=== PATIENT | female | born 1960 | race Caucasian/White ===

== ENCOUNTER 2017-04-12 12:53 | Emergency (ER) | payer OTHER ==
[2017-04-12 13:04] VITALS: BP 138/91
[2017-04-12] MEDS ORDERED: Ketorolac 30 MG/ML SDV IM ONE (13:27)
[2017-04-12] MEDS ORDERED: Dexamethasone 4 MG/ML SDV IM ONE (13:27)
--- NOTE | 2017-04-12 13:27 | EDM.PDOC ---
ED HPI GENERAL MEDICAL PROBLEM - General Chief Complaint: General Stated Complaint: NOT FEELING GOOD, FOOT PAIN AND SINUSES Time Seen by Provider: 04/12/17 13:23 Source of Information: Reports: Patient History Limitations: Reports: No Limitations - History of Present Illness INITIAL COMMENTS - FREE TEXT/NARRATIVE: 57 yo female presents with pain to right medial foot. States that she twisted the foot 2 weeks ago but pain not improving. States that she has a hx of plantar fasciitis. Also c/o sinus congestion and pain x 1 week. States that she could not get into clinic so she came to Er because she is on her feet all day at work. No other complaints. Onset Date: 03/29/17 Duration: Constant Location: Reports: Lower Extremity, Right Quality: Reports: Sharp Severity: Moderate Improves with: Reports: None Worsens with: Reports: Movement Associated Symptoms: Reports: No Other Symptoms Right Feet Pain Score (Numeric/FACES): 5 - Related Data Allergies Allergy/AdvReac Type Severity Reaction Status Date / Time acetaminophen [From Percocet] Allergy Shortness Verified 04/12/17 13:07 of Breath oxycodone HCl [From Percocet] Allergy Shortness Verified 04/12/17 13:07 of Breath Penicillins Allergy Swollen Verified 04/12/17 13:07 Tongue Sulfa (Sulfonamide Allergy Hives Verified 04/12/17 13:07 Antibiotics) Home Meds: Home Meds Calcium Carbonate [Calcium] 500 mg PO DAILY 11/30/15 [History] Cinnamon Bark [Cinnamon] 500 mg PO DAILY 11/30/15 [History] Famotidine [Pepcid AC] 10 mg PO DAILY 11/30/15 [History] Fexofenadine [Malaika] 180 mg PO DAILY 11/30/15 [History] Milk Thistle 175 mg PO DAILY 11/30/15 [History] Nortriptyline 25 mg PO BEDTIME 11/30/15 [History] Biotin 1 tab PO DAILY 04/12/17 [History] Vit A & D3 In Cod Liver Oil [Cod Liver Oil Softgel] 1 tab PO DAILY 04/12/17 [ History] Vit B Cmplx 3/Fa/Vit C/Biotin [Sophy-Khoa Rx Tablet] 1 each PO DAILY 04/12/17 [ History] Past Medical History HEENT History: Reports: Impaired Vision, Otitis Media, Other (See Below) Other HEENT History: skin graft over right ear when 20 Cardiovascular History: Reports: None Respiratory History: Reports: None Gastrointestinal History: Reports: GERD 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 Musculoskeletal History: Reports: None Neurological History: Reports: None Psychiatric History: Reports: Anxiety Endocrine/Metabolic History: Reports: Obesity/BMI 30+ Hematologic History: Reports: None Immunologic History: Reports: None Oncologic (Cancer) History: Reports: None Dermatologic History: Reports: Eczema - Infectious Disease History Infectious Disease History: Reports: None - Past Surgical History Head Surgeries/Procedures: Reports: None Female Surgical History: Reports: Other (See Below) Other Female Surgeries/Procedures: bladder lift in 2008 Social & Family History - Family History Family Medical History: Noncontributory - Tobacco Use Smoking Status *Q: Current Every Day Smoker Years of Tobacco use: 10 Packs/Tins Daily: 0.5 Second Hand Smoke Exposure: Yes - Caffeine Use Caffeine Use: Reports: Soda, Tea - Recreational Drug Use Recreational Drug Use: No - Living Situation & Occupation Living situation: Reports: , with Family Occupation: Employed ED ROS GENERAL - Review of Systems Review Of Systems: See Below HEENT: Reports: Sinus Problem Musculoskeletal: Reports: Foot Pain ED EXAM, GENERAL - Physical Exam Exam: See Below Exam Limited By: No Limitations General Appearance: Alert, WD/WN, No Apparent Distress Eye Exam: Bilateral Eye: PERRL Ears: Normal External Exam, Normal Canal, Hearing Grossly Normal Ear Exam: Bilateral Ear: TM Dull Nose: Normal Inspection, Normal Mucosa, No Blood Throat/Mouth: Normal Inspection, Normal Lips, Normal Teeth, Normal Gums, Normal Oropharynx, Normal Voice, No Airway Compromise Head: Sinus Tenderness (frontal and maxillary bilaterally) Neck: Normal Inspection, Supple, Non-Tender, Full Range of Motion Respiratory/Chest: No Respiratory Distress, Lungs Clear, Normal Breath Sounds, No Accessory Muscle Use, Chest Non-Tender Cardiovascular: Normal Peripheral Pulses, Regular Rate, Rhythm, No Edema, No Gallop, No JVD, No Murmur, No Rub Peripheral Pulses: 4+: Dorsalis Pedis (L), Dorsalis Pedis (R) Extremities: Normal Inspection, Normal Range of Motion, Non-Tender, Normal Capillary Refill, No Pedal Edema Skin Exam: Warm, Dry, Intact, Normal Color, No Rash Course - Vital Signs Last Recorded V/S: Last Vital Signs Temp 97.6 F 04/12/17 13:03 Pulse 84 04/12/17 13:03 Resp 20 04/12/17 13:03 BP 138/91 H 04/12/17 13:03 Pulse Ox 94 L 04/12/17 13:03 - Orders/Labs/Meds Labs: Laboratory Tests 04/12/17 Range/Units 13:02 POC Glucose 88 (70-105) mg/dl Meds: Medications Discontinued Medications Generic Name Dose Route Start Last Admin Trade Name Saurav PRN Reason Stop Dose Admin Dexamethasone 10 mg 04/12/17 13:27 04/12/17 13:38 Dexamethasone IM 04/12/17 13:28 10 mg ONETIME ONE Administration Ketorolac Tromethamine 30 mg 04/12/17 13:27 04/12/17 13:39 Toradol IM 04/12/17 13:28 30 mg ONETIME ONE Administration - Radiology Interpretation Free Text/Narrative:: NO acute fracture or dislocation noted. - Re-Assessments/Exams Free Text/Narrative Re-Assessment/Exam: 04/12/17 14:04 Pt feels better. will dc home with z-pack and medrol dose pack. Pt request off work until wednesday however informed patient that she can have 2 days off. Departure - Departure Time of Disposition: 14:05 Disposition: Home, Self-Care 01 Condition: Good Clinical Impression: Plantar fasciitis of right foot Sinusitis Qualifiers: Sinusitis location: unspecified location Chronicity: acute Recurrence: not specified as recurrent Qualified Code(s): J01.90 - Acute sinusitis, unspecified - Discharge Information Instructions: Plantar Fasciitis, Sinusitis, Adult, [id number] Forms: ED Department Discharge Additional Instructions: Take medication as prescribed. Follow up with your PCP as needed
--- NOTE | 2017-04-12 13:40 | CR ---
Clinical history: 57-year-old female with right foot pain (2 weeks). Interpretation: AP lateral views right foot confirms the presence of large heel spurs at the inserti on plantar aponeurosis and Achilles tendon on the os calcis. Atavistic first cuneiform and chronic mild arthritic changes first metatarsophalangeal joint. No sign of foreign body, inflammatory periostitis, right foot fracture or dislocation.
== END 2017-04-12 14:11 | disposition home or self-care (01) ==
LOC: DL.ED 12:53
DX: M72.2 Plantar fascial fibromatosis (principal); J01.90 Acute sinusitis, unspecified; F41.9 Anxiety disorder, unspecified; H54.7 Unspecified visual loss; K21.9 Gastro-esophageal reflux disease without esophagitis; E11.9 Type 2 diabetes mellitus without complications; F17.210 Nicotine dependence, cigarettes, uncomplicated; Z88.8 Allergy status to other drugs, medicaments and biological substances; Z88.0 Allergy status to penicillin; Z88.2 Allergy status to sulfonamides
CPT/HCPCS: 73620; 82962; 96372; 99283; J1100; J1885

== ENCOUNTER 2017-12-06 09:21 | Emergency (ER) | payer OTHER ==
[2017-12-06 09:36] VITALS: BP 156/97
--- NOTE | 2017-12-06 10:10 | EDM.PDOC ---
ED HPI GENERAL MEDICAL PROBLEM - General Chief Complaint: Abdominal Pain Stated Complaint: ABD PAIN, BAD ACID REFLUX X 3 DAYS Time Seen by Provider: 12/06/17 09:55 Source of Information: Reports: Patient History Limitations: Reports: No Limitations - History of Present Illness INITIAL COMMENTS - FREE TEXT/NARRATIVE: This 57 yo female patient reports to the ED with right upper quadrant abdominal pain that started Wednesday (12/03/17). The patient reports her pain has been coming and going since that time. The patient reports that she was seen in the Clinic last Wednesday (12/01/17) for an ear infection (started on Augmentin and Prednisone). The patient called back to the Clinic on (12/02/17) due to a cold sore and discharge (started on Acyclovir and Nystatin). The patient reports she has taken her Acyclovir, Nystatin, Pepcid AC, Benadryl and some over the counter medications (Tums) with no symptom relief. The patient also reports she tried Kalli Jeannie, stale Coke and lemon juice with no improvement of her acid reflux. Onset Date: 12/03/17 Duration: Intermittent Location: Reports: Abdomen (RUQ) Quality: Reports: Ache, Dull Severity: Moderate Improves with: Reports: None Worsens with: Reports: None Context: Reports: Other Associated Symptoms: Reports: No Other Symptoms Right Upper Abdomen Pain Score (Numeric/FACES): 6 - Related Data Allergies Allergy/AdvReac Type Severity Reaction Status Date / Time oxycodone HCl [From Percocet] Allergy Shortness Verified 12/06/17 09:36 of Breath Penicillins Allergy Swollen Verified 12/06/17 09:36 Tongue Sulfa (Sulfonamide Allergy Hives Verified 12/06/17 09:36 Antibiotics) Home Meds: Home Meds Calcium Carbonate [Calcium] 500 mg PO DAILY 11/30/15 [History] Cinnamon Bark [Cinnamon] 500 mg PO DAILY 11/30/15 [History] Famotidine [Pepcid AC] 10 mg PO DAILY 11/30/15 [History] Fexofenadine [Malaika] 180 mg PO DAILY 11/30/15 [History] Milk Thistle 175 mg PO DAILY PRN 11/30/15 [History] Nortriptyline 25 mg PO BEDTIME 03/12/16 [History] Vit A & D3 In Cod Liver Oil [Cod Liver Oil Softgel] 1 tab PO DAILY 04/12/17 [ History] Vit B Cmplx 3/Fa/Vit C/Biotin [Sophy-Khoa Rx Tablet] 1 each PO DAILY 04/12/17 [ History] Past Medical History HEENT History: Reports: Impaired Vision, Otitis Media, Other (See Below) Other HEENT History: skin graft over right ear when 20, wears glasses Cardiovascular History: Reports: None Respiratory History: Reports: None Gastrointestinal History: Reports: GERD Genitourinary History: Reports: None 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 Musculoskeletal History: Reports: None Neurological History: Reports: None Psychiatric History: Reports: Anxiety Endocrine/Metabolic History: Reports: Obesity/BMI 30+ Hematologic History: Reports: None Immunologic History: Reports: None Oncologic (Cancer) History: Reports: None Dermatologic History: Reports: Eczema - Infectious Disease History Infectious Disease History: Reports: None - Past Surgical History Head Surgeries/Procedures: Reports: None Female Surgical History: Reports: Other (See Below) Other Female Surgeries/Procedures: bladder lift in 2008 Social & Family History - Family History Family Medical History: Noncontributory - Tobacco Use Smoking Status *Q: Current Every Day Smoker Years of Tobacco use: 10 Packs/Tins Daily: 0.5 Second Hand Smoke Exposure: No - Caffeine Use Caffeine Use: Reports: Soda, Tea - Recreational Drug Use Recreational Drug Use: No - Living Situation & Occupation Living situation: Reports: , with Family Occupation: Employed ED ROS GENERAL - Review of Systems Review Of Systems: ROS reveals no pertinent complaints other than HPI. ED EXAM, GI/ABD - Physical Exam Exam: See Below Exam Limited By: No Limitations General Appearance: Alert, WD/WN, Moderate Distress, Obese Eyes: Bilateral: Normal Appearance, EOMI Ears: Normal External Exam, Normal Canal, Hearing Grossly Normal Nose: Normal Inspection, Normal Mucosa, No Blood Throat/Mouth: Normal Inspection, Normal Lips, Normal Teeth, Normal Gums, Normal Oropharynx, Normal Voice, No Airway Compromise Head: Atraumatic, Normocephalic Neck: Normal Inspection, Supple, Non-Tender, Full Range of Motion Respiratory/Chest: No Respiratory Distress, Lungs Clear, Normal Breath Sounds, No Accessory Muscle Use, Chest Non-Tender Cardiovascular: Normal Peripheral Pulses, Regular Rate, Rhythm, No Edema, No Gallop, No JVD, No Murmur, No Rub GI/Abdominal Exam: Normal Bowel Sounds, No Organomegaly, No Distention, No Abnormal Bruit, No Mass, Pelvis Stable, Tender (RUQ and epigastric tenderness to palpation) (Female) Exam: Deferred Rectal (Female) Exam: Deferred Back Exam: Normal Inspection, Full Range of Motion, NT Extremities: Normal Inspection, Normal Range of Motion, Non-Tender, Normal Capillary Refill, No Pedal Edema Neurological: Alert, Oriented, CN II-XII Intact, Normal Cognition, Normal Gait, Normal Reflexes, No Motor/Sensory Deficits Psychiatric: Anxious Skin Exam: Warm, Dry, Intact, Normal Color, No Rash Lymphatic: No Adenopathy Course - Vital Signs Last Recorded V/S: Last Vital Signs Temp 37.1 C 12/06/17 09:28 Pulse 74 12/06/17 09:28 Resp 16 12/06/17 09:28 BP 156/97 H 12/06/17 09:28 Pulse Ox 96 12/06/17 09:28 - Orders/Labs/Meds Labs: Laboratory Tests 12/06/17 12/06/17 12/06/17 Range/Units 09:58 09:58 09:58 WBC 11.7 H (5.0-10.0) 10^3/uL RBC 4.66 (4.2-5.4) 10^6/uL Hgb 12.9 (12.0-16.0) g/dL Hct 38.7 (37.0-47.0) % MCV 83.0 (80-100) fL MCH 27.7 (27.0-34.0) pg MCHC 33.3 (33.0-35.0) g/dL Plt Count 324 (150-450) 10^3/uL Neut % (Auto) 63.7 (42.2-75.2) % Lymph % (Auto) 28.2 (20.5-50.1) % [place] % (Auto) 5.6 (2-8) % Eos % (Auto) 2.2 (1.0-3.0) % Baso % (Auto) 0.3 (0.0-1.0) % Sodium 138 (135-145) mmol/L Potassium 4.2 (3.6-5.0) mmol/L Chloride 104 (101-111) mmol/L Carbon Dioxide 25.0 (21.0-31.0) mmol/L Anion Gap 13.2 BUN 18 (7-18) mg/dL Creatinine 0.8 (0.6-1.3) mg/dL Est Cr Clr Drug Dosing 74.38 mL/min Estimated GFR (MDRD) > 60 BUN/Creatinine Ratio 22.50 Glucose 111 H (74-105) mg/dL Calcium 8.8 (8.4-10.2) mg/dl Total Bilirubin 0.5 (0.2-1.0) mg/dL AST 21 (10-42) IU/L ALT 30 (10-60) IU/L Alkaline Phosphatase 55 (42-121) IU/L Total Protein 7.2 (6.7-8.2) g/dl Albumin 3.9 (3.2-5.5) g/dl Globulin 3.3 Albumin/Globulin Ratio 1.18 Amylase 41 (28-100) U/L Lipase 17 L (22-51) U/L Urine Color (YELLOW) Urine Appearance (CLEAR) Urine pH (5.0-9.0) Ur Specific [place] (1.005-1.030) Urine Protein (NEGATIVE) Urine Glucose (UA) (NEGATIVE) Urine Ketones (NEGATIVE) Urine Occult Blood (NEGATIVE) Urine Nitrite (NEGATIVE) Urine Bilirubin (NEGATIVE) Urine Urobilinogen (0.2-1.0) mg/dL Ur Leukocyte Esterase (NEGATIVE) Urine RBC /HPF Urine WBC (0-5/HPF) /HPF Ur Epithelial Cells /HPF Urine Bacteria (0-FEW/HPF) /HPF Urine Mucus /LPF 12/06/17 Range/Units 10:06 WBC (5.0-10.0) 10^3/uL RBC (4.2-5.4) 10^6/uL Hgb (12.0-16.0) g/dL Hct (37.0-47.0) % MCV (80-100) fL MCH (27.0-34.0) pg MCHC (33.0-35.0) g/dL Plt Count (150-450) 10^3/uL Neut % (Auto) (42.2-75.2) % Lymph % (Auto) (20.5-50.1) % [place] % (Auto) (2-8) % Eos % (Auto) (1.0-3.0) % Baso % (Auto) (0.0-1.0) % Sodium (135-145) mmol/L Potassium (3.6-5.0) mmol/L Chloride (101-111) mmol/L Carbon Dioxide (21.0-31.0) mmol/L Anion Gap BUN (7-18) mg/dL Creatinine (0.6-1.3) mg/dL Est Cr Clr Drug Dosing mL/min Estimated GFR (MDRD) BUN/Creatinine Ratio Glucose (74-105) mg/dL Calcium (8.4-10.2) mg/dl Total Bilirubin (0.2-1.0) mg/dL AST (10-42) IU/L ALT (10-60) IU/L Alkaline Phosphatase (42-121) IU/L Total Protein (6.7-8.2) g/dl Albumin (3.2-5.5) g/dl Globulin Albumin/Globulin Ratio Amylase (28-100) U/L Lipase (22-51) U/L Urine Color Yellow (YELLOW) Urine Appearance Clear (CLEAR) Urine pH 5.5 (5.0-9.0) Ur Specific [place] 1.015 (1.005-1.030) Urine Protein Negative (NEGATIVE) Urine Glucose (UA) Negative (NEGATIVE) Urine Ketones Negative (NEGATIVE) Urine Occult Blood Negative (NEGATIVE) Urine Nitrite Negative (NEGATIVE) Urine Bilirubin Negative (NEGATIVE) Urine Urobilinogen 0.2 (0.2-1.0) mg/dL Ur Leukocyte Esterase Negative (NEGATIVE) Urine RBC 0-5 /HPF Urine WBC 0-5 (0-5/HPF) /HPF Ur Epithelial Cells Few /HPF Urine Bacteria Rare (0-FEW/HPF) /HPF Urine Mucus Rare /LPF Meds: Medications Discontinued Medications Generic Name Dose Route Start Last Admin Trade Name Freq PRN Reason Stop Dose Admin Al Hydroxide/Mg Hydroxide 30 ml 12/06/17 12:07 12/06/17 12:15 Gi Cocktail PO 12/06/17 12:08 30 ml ONETIME ONE Administration Omeprazole 20 mg 12/06/17 12:07 12/06/17 12:14 Omeprazole PO 12/06/17 12:08 20 mg ONETIME ONE Administration - Re-Assessments/Exams Free Text/Narrative Re-Assessment/Exam: 12/06/17 12:09 The patient was advised of the lab and CT results. The patient was given Omeprazole and a GI Cocktail. Departure - Departure Time of Disposition: 12:55 Disposition: Home, Self-Care 01 Condition: Fair Clinical Impression: GERD (gastroesophageal reflux disease) Qualifiers: Esophagitis presence: esophagitis presence not specified Qualified Code(s): K21.9 - Gastro-esophageal reflux disease without esophagitis - Discharge Information Instructions: Gastroesophageal Reflux Disease, Adult, [id number] Forms: ED Department Discharge Care Plan Goals: The patient was advised of the examination, lab and CT results during the visit. The patient was given an oral dose of Omeprazole and a GI Cocktail during the visit. The patient was discharged with a script for Omeprazole (20 mg ) #30 to take 1 by mouth daily 30 minutes prior to eating. If the patient has any additional symptoms or concerns, the patient should visit her primary care facility or return to the emergency department.
[2017-12-06 10:27] LABS: ANION GAP 13.2; CHLORIDE,CL 104 mmol/L (101-111); SODIUM,NA 138 mmol/L (135-145)
--- NOTE | 2017-12-06 11:58 | CT ---
Clinical history: 57-year-old 216 pounds female smoker with midepigastric pain (administered several antibiotics, steroids and antiviral medications in the past week) who has had previous hysterectomy. WBC 11,700. Scan technique: Volume acquisition of data from the abdomen and pelvis obtained without oral or IV co ntrast while lying supine on the Siemens multi slice CT scanner [facility]. All data archived in the PACS system for storage, reformatting and study. Interpretation: Negative exam. 1. Gallbladder, unenhanced liver, stomach, spleen, and adrenal glands unremarkable. 2. Normal size and anatomic configuration of the pancreas without pancreatic mass lesion, inflammator y peripancreatic "dirty" peritoneal fat, calcifications or abnormal pancreatic duct dilatation. 3. Normal caliber aortoiliac vessels. 4. Normal reniform size, axis and configuration. No cortical mass lesion, nephrolithiasis or obstruct kelsie uropathy. 5. No signs of diverticulitis, pelvic or abdominal mass lesion, inflammatory "dirty" peritoneal fat, mesenteric or retroperitoneal lymphadenopathy, mechanical bowel obstruction, ascites or free intraper itoneal air. Normal appendix RLQ. 6. Hypertrophic marginal spondylosis T7-8 level lower dorsal spine. Lumbar spine unremarkable. 7. Bibasilar atelectasis but lung young otherwise clear i.e. no mass, lobar pneumonia or dependent e ffusion.
[2017-12-06] MEDS ORDERED: GI Cocktail Oral Solution 30 ML PO ONE (12:07)
[2017-12-06] MEDS ORDERED: Omeprazole 20 MG Cap.CR PO ONE (12:07)
== END 2017-12-06 13:07 | disposition home or self-care (01) ==
LOC: DL.ED 09:21
DX: K21.9 Gastro-esophageal reflux disease without esophagitis (principal); F17.210 Nicotine dependence, cigarettes, uncomplicated; Z88.5 Allergy status to narcotic agent; Z88.0 Allergy status to penicillin; Z88.2 Allergy status to sulfonamides; Z79.899 Other long term (current) drug therapy
CPT/HCPCS: 36415; 74176; 80053; 81001; 82150; 83690; 85025; 99284; A9270

== ENCOUNTER 2017-12-20 06:23 | Day surgery (SDC) | payer OTHER ==
[2017-12-20] MEDS ORDERED: fentaNYL 100 MCG/2 ML SDV IV ONE ×3 (06:24→07:30)
[2017-12-20] MEDS ORDERED: Midazolam 1 MG/ML 2 ML SDV IV ONE ×3 (06:24→07:31)
[2017-12-20] MEDS ORDERED: fentaNYL 100 MCG/2 ML SDV ONE (06:30)
[2017-12-20] MEDS ORDERED: Midazolam 1 MG/ML 2 ML SDV ONE (06:30)
[2017-12-20] MEDS ORDERED: Dextrose 5%-0.45% NaCl 1,000 ML IV SCH (07:15)
[2017-12-20 11:13] VITALS: BP 100/63
--- NOTE | 2017-12-20 14:41 | OR ---
DATE: 12/20/2017 PROCEDURE: Esophagogastroduodenoscopy and multiple pinch biopsies. INSTRUMENT USED: GIF-H180 Olympus video panendoscope. PREMEDICATIONS: No oral topical anesthesia used. Fentanyl 100 mcg intravenous, Versed 2 mg intravenous. Nasal O2 cannula. The procedure was done under pulse oximetry, BP recording, and satellite project site monitor. INDICATION: The patient with persistent upper abdominal pain, unexplained, and not responsive to medical measures, on acid suppressants. Esophagogastroduodenoscopy is performed for detection of any active erosive lesions, Park esophagus and/or malignancy also under consideration, H. pylori status to be determined, endoscopic hemostasis therapy if needed. DESCRIPTION OF PROCEDURE: The scope was passed with ease. Adequate visualization of the esophagus was made from proximal to distal areas. No upper esophageal lesions identified. No distal esophageal stricture. No uphill or downhill esophageal varices. No Myrna-Leyva tear. No evidence of erosive esophagitis by [place] criteria. No esophageal polyp or tumor mass identified. Z-line was seen at around 40 cm distal to the oral verge, configuration consistent with grade 1 by ZAP classification. No proximal gastric varices noted. Gastric fundus examination by retroflexion showed no polypoid lesions. No gastric ulcer, malignant mass, or vascular ectasia identified. Duodenal bulb showed no ulcer. Visualized 2nd part of the duodenum was unremarkable. Some pylorospasm was noted. Multiple pinch biopsies were taken from the gastric antrum and proximal body and sent for PyloriTek test for H. pylori, and if negative in an hour, tissue is to be sent for histopathology. No bleeding was noted from any of the visualized areas at the completion of examination. Photographs were taken of the duodenal bulb, gastric antrum, fundus, and distal esophagus. IMPRESSION: Normal study. The patient tolerated the procedure well. [facility] /[id number]
== END 2017-12-20 09:40 | disposition home or self-care (01) ==
LOC: DL.ENDO 06:23
PROVIDERS: ATTEND Internal Medicine Gastroenterology
DX: K31.3 Pylorospasm, not elsewhere classified (principal); E66.9 Obesity, unspecified; G47.30 Sleep apnea, unspecified; K21.9 Gastro-esophageal reflux disease without esophagitis; Z88.0 Allergy status to penicillin; Z88.1 Allergy status to other antibiotic agents; Z88.2 Allergy status to sulfonamides; Z88.8 Allergy status to other drugs, medicaments and biological substances; F17.210 Nicotine dependence, cigarettes, uncomplicated
CPT/HCPCS: 43239; J2250; J3010; J7042

== ENCOUNTER 2019-09-21 18:07 | Emergency (ER) | payer OTHER ==
[2019-09-21 18:50] VITALS: BP 133/80; PULSE 83
--- NOTE | 2019-09-21 20:03 | EDM.PDOC ---
ED HPI GENERAL MEDICAL PROBLEM - General Chief Complaint: Lower Extremity Injury/Pain Stated Complaint: PAIN IN LEG/TINGLING IN HAND Time Seen by Provider: 09/21/19 20:00 Source of Information: Reports: Patient History Limitations: Reports: No Limitations - History of Present Illness INITIAL COMMENTS - FREE TEXT/NARRATIVE: ED with c/o pain to right leg since Wednesday sometimes down back of calf, sometimes radiating up the outside from ankle to thigh. Denies injury, No hx of blood clots, no travel Pain worse at times with movement Notes some swelling around ankle upper calf. No fever or chills, no redness. Has only taking ibuprofen one time today as "to busy" Has not been seen in clinic setting . 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 Right Leg Pain Score (Numeric/FACES): 6 - Related Data Allergies Allergy/AdvReac Type Severity Reaction Status Date / Time cefdinir Allergy Swelling Verified 09/21/19 18:51 Gold Salts Allergy Rash Verified 09/21/19 18:51 levofloxacin [From Levaquin] Allergy Rash Verified 09/21/19 18:51 oxycodone HCl [From Percocet] Allergy Shortness Verified 09/21/19 18:51 of Breath Penicillins Allergy Swollen Verified 09/21/19 18:51 Tongue Sulfa (Sulfonamide Allergy Hives Verified 09/21/19 18:51 Antibiotics) Home Meds: Home Meds Fexofenadine [Malaika] 180 mg PO DAILY 11/30/15 [History] Acetaminophen 500 - 1,000 mg PO ASDIRECTED PRN 12/20/17 [History] Mometasone Furoate [Nasonex [place]] 1 spray NASBOTH ASDIRECTED 12/20/17 [History] Omeprazole 20 mg PO DAILY 12/20/17 [History] DULoxetine HCl [Duloxetine HCl] 30 mg PO DAILY 09/21/19 [History] Montelukast [Singulair] 10 mg PO DAILY 09/21/19 [History] rOPINIRole [Requip] 0.25 mg PO DAILY 09/21/19 [History] Past Medical History HEENT History: Reports: Impaired Vision, Otitis Media, Other (See Below) Other HEENT History: skin graft over right ear when 20, wears glasses Cardiovascular History: Reports: None Respiratory History: Reports: Sleep Apnea Other Respiratory History: C-pap Gastrointestinal History: Reports: GERD Genitourinary History: Reports: None STONE RUBBER History: Reports: None, , Other (See Below) Other STONE RUBBER History: Hysterectomy Musculoskeletal History: Reports: None Neurological History: Reports: Vertigo Psychiatric History: Reports: Anxiety, Depression Endocrine/Metabolic History: Reports: Obesity/BMI 30+ Hematologic History: Reports: None Immunologic History: Reports: None Oncologic (Cancer) History: Reports: None Dermatologic History: Reports: Eczema - Infectious Disease History Infectious Disease History: Reports: Chicken Pox - Past Surgical History Head Surgeries/Procedures: Reports: None Cardiovascular Surgical History: Reports: None Respiratory Surgical History: Reports: None GI Surgical History: Reports: Colonoscopy Female Surgical History: Reports: Hysterectomy, Other (See Below) Other Female Surgeries/Procedures: bladder lift in 2008 Musculoskeletal Surgical History: Reports: Other (See Below) Other Musculoskeletal Surgeries/Procedures:: PLANTAR FASCITIS r) FT, HEEL SPUR Bone spur to Rt. knee. Social & Family History - Family History Family Medical History: Noncontributory - Tobacco Use Smoking Status *Q: Current Every Day Smoker Years of Tobacco use: 19 Packs/Tins Daily: 0.5 - Caffeine Use Caffeine Use: Reports: Soda, Tea - Recreational Drug Use Recreational Drug Use: No - Living Situation & Occupation Living situation: Reports: , with Family Occupation: Employed Review of Systems - Review of Systems Review Of Systems: Comprehensive ROS is negative, except as noted in HPI. ED EXAM, GENERAL - Physical Exam Exam: See Below Exam Limited By: No Limitations General Appearance: Alert, Mild Distress Eye Exam: Bilateral Eye: EOMI Ears: Normal External Exam Nose: Normal Inspection Throat/Mouth: Normal Inspection Head: Atraumatic, Normocephalic Neck: Normal Inspection, Full Range of Motion Respiratory/Chest: No Respiratory Distress, Lungs Clear, Normal Breath Sounds Cardiovascular: Normal Peripheral Pulses, Regular Rate, Rhythm Back Exam: Full Range of Motion Extremities: Other (mild tenderness lateral calf increase with flexion, no obvious swelling). No: Es's Sign, Limited Range of Motion, Increased Warmth , Pallor, Redness Neurological: Alert, Oriented, Normal Cognition Psychiatric: Normal Affect Skin Exam: Warm, Dry, Intact Course - Vital Signs Last Recorded V/S: Last Vital Signs Temp 97.6 F 09/21/19 18:43 Pulse 83 01/02/20 18:43 Resp 16 09/21/19 18:43 BP 133/80 09/21/19 18:43 Pulse Ox 96 09/21/19 18:43 - Orders/Labs/Meds Labs: Laboratory Tests 09/21/19 09/21/19 09/21/19 Range/Units 20:48 20:48 20:48 WBC 12.8 H (5.0-10.0) 10^3/uL RBC 4.50 (4.2-5.4) 10^6/uL Hgb 12.4 (12.0-16.0) g/dL Hct 37.7 (37.0-47.0) % MCV 83.8 (80-100) fL MCH 27.6 (27.0-34.0) pg MCHC 32.9 L (33.0-35.0) g/dL Plt Count 331 (150-450) 10^3/uL Neut % (Auto) 62.8 (42.2-75.2) % Lymph % (Auto) 27.6 (20.5-50.1) % Maries % (Auto) 5.8 (2-8) % Eos % (Auto) 3.4 H (1.0-3.0) % Baso % (Auto) 0.4 (0.0-1.0) % PT 9.0 (9.0-12.0) SEC INR 0.9 (0.9-1.2) D-Dimer, Quantitative < 100 (0-400) ng/mL Sodium 139 (135-145) mmol/L Potassium 4.3 (3.6-5.0) mmol/L Chloride 103 (101-111) mmol/L Carbon Dioxide 27.0 (21.0-31.0) mmol/L Anion Gap 13.3 BUN 21 H (7-18) mg/dL Creatinine 1.0 (0.6-1.3) mg/dL Est Cr Clr Drug Dosing 58.11 mL/min Estimated GFR (MDRD) 57 BUN/Creatinine Ratio 21.00 Glucose 116 H (74-105) mg/dL Lactic Acid (0.5-2.2) mmol/L Calcium 9.0 (8.4-10.2) mg/dl Total Bilirubin 0.5 (0.2-1.0) mg/dL AST 21 (10-42) IU/L ALT 30 (10-60) IU/L Alkaline Phosphatase 59 (42-121) IU/L Total Protein 7.5 (6.7-8.2) g/dl Albumin 4.0 (3.2-5.5) g/dl Globulin 3.5 Albumin/Globulin Ratio 1.14 TSH, Ultra Sensitive (0.45-5.33) uIu/mL 09/21/19 09/21/19 Range/Units 20:48 22:47 WBC (5.0-10.0) 10^3/uL RBC (4.2-5.4) 10^6/uL Hgb (12.0-16.0) g/dL Hct (37.0-47.0) % MCV (80-100) fL MCH (27.0-34.0) pg MCHC (33.0-35.0) g/dL Plt Count (150-450) 10^3/uL Neut % (Auto) (42.2-75.2) % Lymph % (Auto) (20.5-50.1) % Maries % (Auto) (2-8) % Eos % (Auto) (1.0-3.0) % Baso % (Auto) (0.0-1.0) % PT (9.0-12.0) SEC INR (0.9-1.2) D-Dimer, Quantitative (0-400) ng/mL Sodium (135-145) mmol/L Potassium (3.6-5.0) mmol/L Chloride (101-111) mmol/L Carbon Dioxide (21.0-31.0) mmol/L Anion Gap BUN (7-18) mg/dL Creatinine (0.6-1.3) mg/dL Est Cr Clr Drug Dosing mL/min Estimated GFR (MDRD) BUN/Creatinine Ratio Glucose (74-105) mg/dL Lactic Acid 0.9 (0.5-2.2) mmol/L Calcium (8.4-10.2) mg/dl Total Bilirubin (0.2-1.0) mg/dL AST (10-42) IU/L ALT (10-60) IU/L Alkaline Phosphatase (42-121) IU/L Total Protein (6.7-8.2) g/dl Albumin (3.2-5.5) g/dl Globulin Albumin/Globulin Ratio TSH, Ultra Sensitive 2.30 (0.45-5.33) uIu/mL Meds: Medications Discontinued Medications Generic Name Dose Route Start Last Admin Trade Name Saurav PRN Reason Stop Dose Admin Ibuprofen 600 mg 09/22/19 00:31 Motrin PO 09/22/19 00:32 ONETIME ONE - Radiology Interpretation Free Text/Narrative:: [facility] [place] [facility] Final Radiology Report Call: [phone] assistance Online chat: [email or web address] Name: GERRY FRYE Age: 59Years F Date: 09/21/2019 SSN: -- : 1960 Study: US DUPLEX EXTREM VEINS [employer] RIGHT Requesting Physician: SEBAS HA Images: 26 Addl Studies: Provided Clinical History: Contrast: Without Contrast Medium: Contrast Amount: Contrast Method: CONFIDENTIALITY STATEMENT This report is intended only for use by the referring physician, and only in accordance with law. If you received this in error, call [phone]. Page 1 of 1 PROCEDURE INFORMATION: Exam: US Duplex Right Lower Extremity Veins, Limited Exam date and time: 09/21/2019 11:35 PM Age: 59 years old Clinical indication: Leg, lower; Right; Patient HX: RT leg pain and swelling TECHNIQUE: Imaging protocol: Real-time Duplex ultrasound of the Right Lower Extremity with 2-D downing scale, color Doppler flow and spectral waveform analysis with image documentation. Limited exam was focused on the right lower extremity veins. COMPARISON: No relevant prior studies available. FINDINGS: Right deep veins: Unremarkable. The common femoral, femoral, proximal profunda femoral and popliteal veins are patent without thrombus. Normal Doppler waveforms. Normal compressibility and/or augmentation response. Right superficial veins: Unremarkable. Saphenofemoral junction is patent without thrombus. Soft tissues: Unremarkable. IMPRESSION: No acute findings. No evidence of deep vein thrombosis. Thank you for allowing us to participate in the care of your patient. Dictated and Authenticated by: Jg Sparrow MD 09/22/2019 12:47 AM Central Time ([place] & [place]) Departure - Departure Time of Disposition: 00:27 Disposition: Home, Self-Care 01 Condition: Good Clinical Impression: Leg pain, right - Discharge Information *PRESCRIPTION DRUG MONITORING PROGRAM REVIEWED*: No *COPY OF PRESCRIPTION DRUG MONITORING REPORT IN PATIENT SURYA: No Instructions: Muscle Strain, [id number], Lumbosacral Radiculopathy Forms: ED Department Discharge Additional Instructions: activity as tolerated alternate tylenol 650mg and ibuprofen 600mg every 4 hours as needed for discomfort clinic follow up Sepsis Event Note - Evaluation Sepsis Screening Result: No Definite Risk - Focused Exam Vital Signs: Vital Signs Temp Pulse Resp BP Pulse Ox 09/21/19 18:43 97.6 F 83 16 133/80 96 Date Exam was Performed: 09/22/19 Time Exam was Performed: 05:42
[2019-09-21 21:15] LABS: ANION GAP 13.3
[2019-09-22] MEDS ORDERED: Ibuprofen 600 MG Tab PO ONE (00:31)
== END 2019-09-22 00:49 | disposition home or self-care (01) ==
LOC: DL.ED 18:07
DX: M79.661 Pain in right lower leg (principal); K21.9 Gastro-esophageal reflux disease without esophagitis; E66.9 Obesity, unspecified; F41.9 Anxiety disorder, unspecified; F32.9 Major depressive disorder, single episode, unspecified; F17.210 Nicotine dependence, cigarettes, uncomplicated; Z88.1 Allergy status to other antibiotic agents; Z88.0 Allergy status to penicillin; Z88.2 Allergy status to sulfonamides; Z88.6 Allergy status to analgesic agent; Z88.8 Allergy status to other drugs, medicaments and biological substances; Z79.899 Other long term (current) drug therapy
CPT/HCPCS: 36415; 80053; 83605; 84443; 85025; 85379; 85610; 93971; 99283; 99284-25

== ENCOUNTER 2021-02-22 15:07 | Emergency (ER) | payer OTHER ==
--- NOTE | 2021-02-22 16:51 | EDM.PDOC ---
Scribed by Sierra Palma 02/22/21 1013 for Golden Escalona MD ED HPI GENERAL MEDICAL PROBLEM - General Chief Complaint: Wound Recheck Stated Complaint: . Time Seen by Provider: 02/22/21 16:15 Source of Information: Reports: Patient, RN, RN Notes Reviewed History Limitations: Reports: No Limitations - History of Present Illness INITIAL COMMENTS - FREE TEXT/NARRATIVE: Patient presents to ED by POV with stating she had breast reduction a week and half ago January. Today she sat up and had a gush of dark brownish blood from the left breast incision. Denies pain, redness or fever. Patient was very anxious about the bloody incision. She did not call her surgeon. Onset: Today, Sudden Duration: Resolved Prior to Arrival Location: Reports: Other (Left breast) Severity: Moderate Improves with: Reports: None Worsens with: Reports: Movement Associated Symptoms: Reports: No Other Symptoms - Related Data Allergies Allergy/AdvReac Type Severity Reaction Status Date / Time cefdinir Allergy Swelling Verified 09/21/19 18:51 Gold Salts Allergy Rash Verified 09/21/19 18:51 levofloxacin [From Levaquin] Allergy Rash Verified 09/21/19 18:51 oxycodone HCl [From Percocet] Allergy Shortness Verified 09/21/19 18:51 of Breath Penicillins Allergy Swollen Verified 09/21/19 18:51 Tongue Sulfa (Sulfonamide Allergy Hives Verified 09/21/19 18:51 Antibiotics) Home Meds: Home Meds Fexofenadine [Malaika] 180 mg PO DAILY 11/30/15 [History] Acetaminophen 500 - 1,000 mg PO ASDIRECTED PRN 12/20/17 [History] Mometasone Furoate [Nasonex [place]] 1 spray NASBOTH ASDIRECTED 12/20/17 [History] Omeprazole 20 mg PO DAILY 12/20/17 [History] DULoxetine HCl [Duloxetine HCl] 30 mg PO DAILY 09/21/19 [History] Montelukast [Singulair] 10 mg PO DAILY 09/21/19 [History] rOPINIRole [Requip] 0.25 mg PO DAILY 09/21/19 [History] metFORMIN [Glucophage] 500 mg PO 08/29/20 [History] Past Medical History HEENT History: Reports: Impaired Vision, Otitis Media, Other (See Below) Other HEENT History: skin graft over right ear when 20, wears glasses Cardiovascular History: Reports: None Respiratory History: Reports: Sleep Apnea Other Respiratory History: C-pap Gastrointestinal History: Reports: GERD Genitourinary History: Reports: None LPN CMA History: Reports: None, , Other (See Below) Other LPN CMA History: Hysterectomy Musculoskeletal History: Reports: None Neurological History: Reports: Vertigo Psychiatric History: Reports: Anxiety, Depression Endocrine/Metabolic History: Reports: Obesity/BMI 30+ Hematologic History: Reports: None Immunologic History: Reports: None Oncologic (Cancer) History: Reports: None Dermatologic History: Reports: Eczema - Infectious Disease History Infectious Disease History: Reports: Chicken Pox - Past Surgical History Head Surgeries/Procedures: Reports: None Cardiovascular Surgical History: Reports: None Respiratory Surgical History: Reports: None GI Surgical History: Reports: Colonoscopy Female Surgical History: Reports: Breast Reduction (January 2021), Hysterectomy, Other (See Below) Other Female Surgeries/Procedures: bladder lift in 2008 Musculoskeletal Surgical History: Reports: Other (See Below) Other Musculoskeletal Surgeries/Procedures:: PLANTAR FASCITIS r) FT, HEEL SPUR Bone spur to Rt. knee. Social & Family History - Family History Family Medical History: No Pertinent Family History - Caffeine Use Caffeine Use: Reports: Soda, Tea - Living Situation & Occupation Living situation: Reports: , with Family Occupation: Employed ED ROS GENERAL - Review of Systems Review Of Systems: Comprehensive ROS is negative, except as noted in HPI. ED EXAM, GENERAL - Physical Exam Exam: See Below Exam Limited By: No Limitations General Appearance: Alert, WD/WN, No Apparent Distress, Anxious Throat/Mouth: Normal Inspection, Normal Voice, No Airway Compromise Head: Atraumatic, Normocephalic Neck: Normal Inspection, Non-Tender Respiratory/Chest: No Respiratory Distress, Lungs Clear, Normal Breath Sounds, No Accessory Muscle Use, Chest Non-Tender, Other (Left breast firm with postoperative hematoma, incision intact, blood saturated steri-strip at medial incision has fallen off, dark bloody serous drainage now resolved.) Cardiovascular: Normal Peripheral Pulses, Regular Rate, Rhythm, No Edema, No Gallop, No JVD, No Murmur, No Rub (Female) Exam: Deferred Rectal (Female) Exam: Deferred Extremities: Normal Inspection Neurological: Alert, Oriented, No Motor/Sensory Deficits Psychiatric: Normal Affect, Normal Mood Skin Exam: Warm, Dry. No: Erythema, Increased Warmth, Rash Course - Re-Assessments/Exams Free Text/Narrative Re-Assessment/Exam: 02/22/21 16:47 Left breast cleansed and dressing applied by RN. Departure - Departure Time of Disposition: 16:28 Disposition: Home, Self-Care 01 Condition: Good Clinical Impression: Status post bilateral breast reduction, Postoperative hematoma of breast, Postoperative bleeding from incision - Discharge Information *PRESCRIPTION DRUG MONITORING PROGRAM REVIEWED*: Not Applicable *COPY OF PRESCRIPTION DRUG MONITORING REPORT IN PATIENT SURYA: Not Applicable Instructions: Wound Check Forms: ED Department Discharge Additional Instructions: Expect more dark blood drainage. Inform you surgeon of the drainage on Wednesday, February 24. Return to ER if any concerns over the remainder of the weekend. I have read and agree with the documentation that has been completed regarding this visit. By signing this record, I attest that the documentation was completed in my physical presence and is an accurate record of the encounter.
[2021-02-22 17:24] VITALS: BP 127/91; PULSE 74
== END 2021-02-22 17:17 | disposition home or self-care (01) ==
LOC: DL.ED 15:07
DX: L76.82 Other postprocedural complications of skin and subcutaneous tissue (principal); L76.22 Postprocedural hemorrhage of skin and subcutaneous tissue following other procedure; Z98.86 Personal history of breast implant removal; E66.9 Obesity, unspecified; K21.9 Gastro-esophageal reflux disease without esophagitis; Z88.5 Allergy status to narcotic agent; Z88.2 Allergy status to sulfonamides; Z88.0 Allergy status to penicillin; Z88.1 Allergy status to other antibiotic agents; Z91.048 Other nonmedicinal substance allergy status
CPT/HCPCS: 99282; 99283

== ENCOUNTER → 2021-04-23 | Day surgery (SDC) | payer OTHER ==
[~2021-04-23] MED LIST: Dextrose 5%-0.45% NaCl 1,000 ML IV SCH; Midazolam 1 MG/ML 2 ML SDV IV ONE; Midazolam 1 MG/ML 2 ML SDV ONE; fentaNYL 100 MCG/2 ML SDV IV ONE; fentaNYL 100 MCG/2 ML SDV ONE
[2021-04-23 11:30] VITALS: BP 100/61; PULSE 58
--- NOTE | 2021-04-23 12:08 | OR ---
DATE: 04/23/2021 PROCEDURE: Total colonoscopy. INSTRUMENT USED: PCF-H190DL Olympus video colonoscope. PREMEDICATIONS: Fentanyl 150 mcg intravenous, Versed 4 mg intravenous. Nasal O2 cannula. The procedure was done pulse oximetry, BP recording, and secured entrance monitor. INDICATION: The patient with rectal bleeding. Colonoscopic examination is done for detection of any polypoid lesions and removal, endoscopic hemostasis therapy if needed. DESCRIPTION OF PROCEDURE: Initial rectal exam showed external hemorrhoidal tags. Rigid anoscopy was normal. The colonoscope was passed with ease. Numerous scattered diverticula were noted in the distal left colon along with some deformity. The scope was passed with ease up to the ileocecal area. Photographs were taken of the normal-appearing cecum, identified by landmarks of appendiceal orifice and double-bulged ileocecal folds. No bleeding was noted from any of the visualized areas at the commencement of the examination. The bowel preparation was found to be adequate, [place] scale in 3 in transverse colon, 2 in the left and right colon, total score 7. No stricture. No vascular ectasia. No large isolated ulcerations seen. No evidence of diffuse inflammatory bowel disease in the form friability, contact bleeding, or ulcerations. No polyp or tumor mass identified. Second look of the right colon was negative for any polypoid lesions. Probing the proximal sides of folds and flexures using adequate distention and clearing up the stool material, withdrawal of the scope was made, cecum to rectum time over 6 minutes. No bleeding was noted from any of the visualized areas at the completion of examination. IMPRESSION: 1. External hemorrhoids. 2. Diverticulosis. The patient tolerated the procedure well. [facility] /[id number]
== END ==
LOC: DL.ENDO 06:26
PROVIDERS: ATTEND Internal Medicine Gastroenterology
DX: K57.31 Diverticulosis of large intestine without perforation or abscess with bleeding (principal); K64.4 Residual hemorrhoidal skin tags; K21.9 Gastro-esophageal reflux disease without esophagitis; E66.09 Other obesity due to excess calories; K58.9 Irritable bowel syndrome, unspecified; F41.9 Anxiety disorder, unspecified; Z88.0 Allergy status to penicillin; Z88.2 Allergy status to sulfonamides; Z88.8 Allergy status to other drugs, medicaments and biological substances; Z68.35 Body mass index [BMI] 35.0-35.9, adult
CPT/HCPCS: J2250; J3010; J7042

== ENCOUNTER 2024-05-04 17:23 | Emergency (ER) | payer OTHER ==
[2024-05-04] MEDS: Dexamethasone 4 MG/ML SDV IM ONE (19:17)
[2024-05-04 19:28] VITALS: BP 122/83; PULSE 68
[2024-05-04] MEDS: Lidocaine 5% 700 MG Patch TOP ONE (19:36)
== END 2024-05-04 19:42 | disposition home or self-care (01) ==
LOC: DL.ED 17:23
DX: S86.891A Other injury of other muscle(s) and tendon(s) at lower leg level, right leg, initial encounter (principal); K21.9 Gastro-esophageal reflux disease without esophagitis; E11.9 Type 2 diabetes mellitus without complications; Z88.1 Allergy status to other antibiotic agents; Z91.018 Allergy to other foods; Z88.0 Allergy status to penicillin; Z88.2 Allergy status to sulfonamides; Z88.5 Allergy status to narcotic agent; Z79.899 Other long term (current) drug therapy; Z79.84 Long term (current) use of oral hypoglycemic drugs; X58.XXXA Exposure to other specified factors, initial encounter
CPT/HCPCS: 73590; 93971; 99284; A9270; J1100